=== PATIENT | male | born 2000 | race Caucasian/White ===

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

== ENCOUNTER 2021-03-19 21:43 | Emergency (ER) | payer BC ==
[~2021-03-19] VITALS: Ht 188 cm; Wt 76.8 kg
[2021-03-19 21:48] VITALS: BP 135/81
[2021-03-20] MEDS ORDERED: acetaminophen 325mg tablet PO ONE (00:30)
[2021-03-20] MEDS ORDERED: ibuprofen tablet 400 MG TABLET PO ONE (00:30)
== END 2021-03-20 00:59 | disposition home or self-care (01) ==
LOC: ER 21:45
DX: S60.512A Abrasion of left hand, initial encounter (principal); M25.532 Pain in left wrist; F41.9 Anxiety disorder, unspecified; F32.9 Major depressive disorder, single episode, unspecified; Z79.899 Other long term (current) drug therapy; Z98.890 Other specified postprocedural states; W01.0XXA Fall on same level from slipping, tripping and stumbling without subsequent striking against object, initial encounter; Y93.89 Activity, other specified; Y92.89 Other specified places as the place of occurrence of the external cause; Y99.8 Other external cause status
CPT/HCPCS: 29125; 73110; 73130; 99284

== ENCOUNTER 2022-03-27 11:12 | Outpatient (CLI) | payer BC | END 2022-03-27 23:59 | disposition home or self-care (01) | LOC: RAD 11:12 | PROVIDERS: ATTEND Physician Assistant | DX: M25.571 Pain in right ankle and joints of right foot (principal); M25.572 Pain in left ankle and joints of left foot | CPT/HCPCS: 73610 ==

== ENCOUNTER 2022-08-19 10:51 | Outpatient (CLI) | payer BC | END 2022-08-19 23:59 | disposition home or self-care (01) | LOC: LAB 10:51 | PROVIDERS: ATTEND Physician Assistant | DX: R19.7 Diarrhea, unspecified (principal); R11.0 Nausea; Z91.018 Allergy to other foods | CPT/HCPCS: 36415; 83520; 86003 ==

== ENCOUNTER 2025-08-12 12:34 | Emergency (ER) | payer BC ==
[~2025-08-12] VITALS: Ht 188 cm; Wt 94.3 kg
[~2025-08-12 12:34] MED LIST changes: -CLON-528 PO; +CLON-850 PO
[2025-08-12 12:40] VITALS: BP 142/83; PULSE 68; RESP 18; TEMP 98.9; O2SAT 98
[2025-08-12] MEDS ORDERED: [UNRECOGNIZED DRUG - CODE] PO (13:01)
--- NOTE | 2025-08-12 13:01 | Physician Documentation ---
HPI ~ General Chief Complaint: Medication Refill Stated Complaint: MED REFILL REQUEST Time Seen by MD: 12:58 Primary Medical Doctor: [facility] Source: patient, family Mode of Arrival: POV Exam Limitations: no limitations History of Present Illness HPI Comments Refill of blood pressure medication verapamil 100 mg extended release Reason for Medication Refill: ran out of medication Medication Reconciliation Allergies: Coded Allergies: No Known Allergies (Unverified , 08/12/25) Scheduled Aripiprazole* (Abilify*), 1 TAB PO HS, (Reported) Clonazepam (Klonopin), 0.5 MG PO BID, (Reported) Sertraline Hcl* (Zoloft*), 4 TAB PO HS, (Reported) Past Medical History 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*, Bowel Obstruction, Anxiety, Depression Past Surgical History: other Patient History: CHF (congestive heart failure) Maternal grandmother Maternal grandfather FH: diabetes mellitus Paternal grandmother FH: hypertension FATHER Alcohol Use: None Drug Use: none Lives with: Mother, Father, Family Lives In: Home Occupation: student Review of Systems All Other Systems at this time: Reviewed and Negative Physical Exam Physical Exam Vital Signs: RN Vital Signs have been reviewed: Yes, Temperature: 98.9, Source: Temporal, Heart Rate: 68, Respiratory Rate: 18, BP: 142/83, Pulse Oximetry: 98, Weight: 94.300 Oxygen Flow Rate: 0 Physical Exam General: Alert, no apparent distress. HEENT: PERRL, EOMI, no injection, moist mucous membranes. Neck: Full range of motion. Respiratory: Lungs clear, no respiratory distress. Chest: No accessory muscle use. Cardiovascular: Regular rate and rhythm, no murmurs. Extremities: Normal range of motion, no deformity. Neurologic: Oriented x4. Psychiatric: Normal mood and affect. Skin: Normal color, warm and dry. No edema, no ecchymosis. Progress Results/Orders Results/Orders Vital Signs 08/12/25 12:40 Temp 98.9 Pulse 68 Resp 18 B/P (MAP) 142/83 Pulse Ox 98 O2 Flow Rate 0 Medical Decision Making Additional information obtaine: N/A Findings Medication refilled Differential Dx:Considerations: Include: Medication refill Departure Time of Disposition: 13:00 Disposition: 01 HOME / SELF CARE / HOMELESS Impression: Primary Impression: General medical exam Condition: Stable Discharge Instructions: Medicine Refill at the Emergency Department Referrals: NO PRIMARY CARE PROVIDER (PCP) Prescriptions Verapamil HCl (Verapamil ER Pm) 100 Mg Cap24h.pct 1 CAP PO DAILY for 30 Days, #30 CAP 0 Refills Prov: AZUL LIU NP 08/12/25 Education Educated: Patient, Family Educated regarding: diagnosis, treatment, need for follow up Signature Scribe Signature: nho Scribe Attestation: The note accurately reflects work and decisions made by me.Azul SHAVER 08/12/25 13:01 AZUL LIU NP Aug 12, 2025 13:01
== END 2025-08-12 13:06 | disposition home or self-care (01) ==
LOC: ER 12:34
DX: Z00.00 Encounter for general adult medical examination without abnormal findings (principal); I50.9 Heart failure, unspecified; Z76.0 Encounter for issue of repeat prescription; Z79.899 Other long term (current) drug therapy
CPT/HCPCS: 99282